=== PATIENT | male | born 1970 | race Caucasian/White ===

== ENCOUNTER 2018-04-11 18:19 | Emergency (ER) | payer MEDICAID ==
[~2018-04-11] VITALS: Ht 180.3 cm; Wt 97.7 kg
[2018-04-11 18:28] VITALS: BP 97/72; Ht 180.3 cm; Wt 97.7 kg
[2018-04-11] MEDS ORDERED: TYLENOL W/CODEI1 TAB PO (19:19)
[2018-04-11] MEDS ORDERED: BACTRIM DS TABL1 TAB PO (19:19)
== END 2018-04-11 19:23 | disposition home or self-care (01) ==
LOC: D.ER 18:19
DX: L03.012 Cellulitis of left finger (principal); F17.200 Nicotine dependence, unspecified, uncomplicated

== ENCOUNTER 2020-01-17 23:45 | Emergency (ER) | payer SELFPAY ==
[~2020-01-17] VITALS: Ht 180.3 cm; Wt 95.3 kg
[~2020-01-17 23:45] MED LIST: BACTRIM DS TABL1 TAB PO; TYLENOL W/CODEI1 TAB PO
[2020-01-17 23:59] VITALS: Ht 180.3 cm; Wt 95.3 kg
[2020-01-18] MEDS ORDERED: METHOCARBAMOL500 MG PO (00:59)
[2020-01-18] MEDS ORDERED: ARTHROTEC EC 71 EACH PO (00:59)
[2020-01-18 01:13] VITALS: BP 145/91
== END 2020-01-18 01:14 | disposition home or self-care (01) ==
LOC: D.ER 23:45
DX: S89.91XA Unspecified injury of right lower leg, initial encounter (principal); M51.36 Other intervertebral disc degeneration, lumbar region; M47.27 Other spondylosis with radiculopathy, lumbosacral region; I25.2 Old myocardial infarction; Z72.0 Tobacco use

== ENCOUNTER 2021-03-23 08:23 | Emergency (ER) | payer MEDICAID ==
[~2021-03-23] VITALS: Ht 180.3 cm; Wt 97.7 kg
[~2021-03-23 08:23] MED LIST changes: +ARTHROTEC EC 71 EACH PO; +METHOCARBAMOL500 MG PO
[2021-03-23 08:32] VITALS: BP 144/95; Ht 180.3 cm; Wt 97.7 kg
[2021-03-23 09:10] LABS: BASOPHILS 1.1 % (0-2); EOSINOPHILS 4.2 % (0-7); HEMOGLOBIN 14.6 g/dL (13.5-17.5); LYMPHOCYTES 31.5 % (15-50); MCH 29.2 pg (26.0-34.0); MCHC 33.2 g/dL (31.0-37.0); MCV 87.8 fL (80.0-100.0); MEAN PLATELET VOLUME 8.4 fL (7.4-10.4); MONOCYTES 8.9 % (2-11); NEUTROPHILS 54.3 % (40-80); PLATELET COUNT 305 10x3/uL (130-400); RBC 5.01 10x6/uL (4.20-6.10); WBC 7.8 10x3/uL (4.8-10.8)
[2021-03-23 09:27] LABS: CALC OSMOLALITY 280 mosm/kg (275-300); CALCIUM 8.2 mg/dL (8.5-10.1); CARBON DIOXIDE 25.8 mmol/L (21.0-32.0); CHLORIDE - SERUM 106 mmol/L (98-107); GLUCOSE 113 mg/dL (74-106); POTASSIUM - SERUM 4.2 mmol/L (3.5-5.1); SODIUM 140 mmol/L (136-145); UREA NITROGEN 16 mg/dL (7-18); eGFR NON AFRICAN AMERICAN 84 mL/min (90-120)
[2021-03-23 09:40] LABS: ALBUMIN 3.3 g/dL (3.4-5.0); ALKALINE PHOSPHATASE 113 U/L (30-120); ALT (SGPT) 29 U/L (10-68); BILIRUBIN - TOTAL 0.22 mg/dL (0.2-1.3); PRO BNP 28 pg/mL (0-125); PROTEIN - SERUM 6.9 g/dL (6.4-8.2); TROPONIN-I < 0.017 ng/mL (0.000-0.060)
[2021-03-23] MEDS ORDERED: FUROSEMIDE20 MG PO ×2 (10:09→10:11)
[2021-03-23] MEDS ORDERED: NEURONTIN 300300 MG PO (10:09)
== END 2021-03-23 10:50 | disposition home or self-care (01) ==
LOC: D.ER 08:23
PROVIDERS: Emergency Medicine
DX: G62.9 Polyneuropathy, unspecified (principal); R60.9 Edema, unspecified; I25.2 Old myocardial infarction; Z72.0 Tobacco use